=== PATIENT | male | born 1980 | race Caucasian/White ===

== ENCOUNTER 2020-02-17 00:24 | Emergency (ER) | payer BC ==
[2020-02-17] MEDS ORDERED: NA CHLORIDE 0.9% 1,000 ML ONE (00:55)
[2020-02-17] MEDS ORDERED: ONDANSETRON 4 MG/2 ML VIAL ONE (00:55)
[2020-02-17] MEDS ORDERED: MORPHINE 4 MG/ML SYR ONE (00:55)
[2020-02-17] MEDS ORDERED: FAMOTIDINE 20 MG/2 ML VIAL IV ONE (00:56)
[2020-02-17 01:33] LABS: Basophils % 0.6 % (0-1.3)
[2020-02-17 01:36] LABS: Protime INR 0.97
[2020-02-17 01:39] LABS: Absolute Lymphocytes (CBC) 1.7 K/uL (0.7-4.9); Hematocrit 42.3 % (39.6-49.0); Lymphocytes % 13.7 % (15.3-44.8); RBC Red Blood Cell Count 4.76 M/uL (4.33-5.43)
[2020-02-17 03:00] LABS: ALT/SGPT 34 U/L (12-78); AST/SGOT 21 U/L (15-37); Albumin 3.5 g/dL (3.4-5.0); Alkaline Phosphatase 81 U/L (45-117); BUN Blood Urea Nitrogen 12 mg/dL (7-18); Bicarbonate 24 mmol/L (21-32); Bilirubin Direct < 0.1 mg/dL (0-0.2); Bilirubin Total 0.2 mg/dL (0.2-1.0); Glucose Level 138 mg/dL (74-106); Lipase 154 U/L (73-393); Magnesium 1.7 mg/dL (1.8-2.4); NT PRO-BNP 27 pg/mL (<125); Protein, Total 6.6 g/dL (6.4-8.2); Sodium Level 139 mmol/L (136-145); Troponin (Emerg Dept Use Only) < 0.02 ng/mL (0.0-0.045)
[2020-02-17] MEDS ORDERED: MAGNESIUM SULFATE 1 gm IVPB 1 GM/100 ML BAG IV ONE (03:27)
--- NOTE | 2020-02-17 03:56 | EDPHYS ---
Physician Documentation [facility] Name: Michael Horne II Age: 39 yrs Sex: Male : 1980 Arrival Date: 02/17/2020 Time: 00:29 Bed 5 Private MD: AAMIR Physician Narciso Leahy HPI: 02/16 01:14 This 39 yrs old Male presents to ER via Wheelchair with complaints of SEVERE gloria ABDOMINAL PAINS UPPER LFT. 01:14 The patient presents with abdominal pain in the upper abdomen, in the left upper gloria quadrant, in the left lower quadrant, abdominal distention in the upper abdomen, in the lower abdomen. Onset: The symptoms/episode began/occurred 3 day(s) ago. The patient presents to the emergency department with nausea, abdominal pain, of the epigastric area, left upper quadrant and left lower quadrant. Onset: The symptoms/episode began/occurred 3 day(s) ago. Possible causes: unknown. Associated signs and symptoms: The patient has no apparent associated signs or symptoms. The symptoms do not radiate. Historical: - Allergies: 00:44 PENICILLINS; tl1 - Home Meds: 00:44 None [Active]; tl1 - PMHx: 00:44 None; tl1 - PSHx: 00:44 Tonsillectomy; Vasectomy; Adenoids; tl1 - Immunization history:: Adult Immunizations up to date. - Social history:: Smoking status: Patient reports use of chewing tobacco. - Family history:: not pertinent. ROS: 01:14 Constitutional: Negative for fever, chills, and weight loss, Eyes: Negative for injury, gloria pain, redness, and discharge, ENT: Negative for injury, pain, and discharge, Neck: Negative for injury, pain, and swelling, Cardiovascular: Negative for chest pain, palpitations, and edema, Respiratory: Negative for shortness of breath, cough, wheezing, and pleuritic chest pain, Back: Negative for injury and pain, : Negative for injury, bleeding, discharge, and swelling, MS/Extremity: Negative for injury and deformity, Skin: Negative for injury, rash, and discoloration, Neuro: Negative for headache, weakness, numbness, tingling, and seizure, Psych: Negative for depression, anxiety, suicide ideation, homicidal ideation, and hallucinations, Allergy/Immunology: Negative for hives, rash, and allergies, Endocrine: Negative for neck swelling, polydipsia, polyuria, polyphagia, and marked weight changes, Hematologic/Lymphatic: Negative for swollen nodes, abnormal bleeding, and unusual bruising. 01:14 Abdomen/GI: Positive for abdominal pain, nausea and vomiting, abdominal cramps, abdominal distension, of the epigastric area, left upper quadrant and left lower quadrant. 01:14 Abdomen/GI: Positive for Exam: 01:14 Constitutional: This is a well developed, well nourished patient who is awake, alert, gloria and in no acute distress. Head/Face: Normocephalic, atraumatic. Eyes: Pupils equal round and reactive to light, extra-ocular motions intact. Lids and lashes normal. Conjunctiva and sclera are non-icteric and not injected. Cornea within normal limits. Periorbital areas with no swelling, redness, or edema. ENT: Nares patent. No nasal discharge, no septal abnormalities noted. Tympanic membranes are normal and external auditory canals are clear. Oropharynx with no redness, swelling, or masses, exudates, or evidence of obstruction, uvula midline. Mucous membranes moist. Neck: Trachea midline, no thyromegaly or masses palpated, and no cervical lymphadenopathy. Supple, full range of motion without nuchal rigidity, or vertebral point tenderness. No Meningismus. Chest/axilla: Normal chest wall appearance and motion. Nontender with no deformity. No lesions are appreciated. Cardiovascular: Regular rate and rhythm with a normal S1 and S2. No gallops, murmurs, or rubs. Normal PMI, no JVD. No pulse deficits. Respiratory: Lungs have equal breath sounds bilaterally, clear to auscultation and percussion. No rales, rhonchi or wheezes noted. No increased work of breathing, no retractions or nasal flaring. Back: No spinal tenderness. No costovertebral tenderness. Full range of motion. Male : Normal genitalia with no discharge or lesions. Skin: Warm, dry with normal turgor. Normal color with no rashes, no lesions, and no evidence of cellulitis. MS/ Extremity: Pulses equal, no cyanosis. Neurovascular intact. Full, normal range of motion. Neuro: Awake and alert, GCS 15, oriented to person, place, time, and situation. Cranial nerves II-XII grossly intact. Motor strength 5/5 in all extremities. Sensory grossly intact. Cerebellar exam normal. Normal gait. Psych: Awake, alert, with orientation to person, place and time. Behavior, mood, and affect are within normal limits. 01:14 Abdomen/GI: Inspection: distension, Bowel sounds: normal, Palpation: mild abdominal tenderness, in the epigastric area, anterior aspect of left lateral abdomen, left upper quadrant and left lower quadrant, Liver: no appreciated palpable abnormalities, Hernia: not appreciated. 01:18 ECG was reviewed by the Attending Physician. [facility] Vital Signs: 00:40 BP 146 / 103; Pulse 88; Resp 17; Temp 97.8; Pulse Ox 98% ; Weight 99.79 kg; Height 5 tl1 ft. 10 in. (177.80 cm); Pain 9/10; 02:34 BP 146 / 103; Pulse 80; Resp 18; Pulse Ox 100% on R/A; mg2 03:39 BP 142 / 101; Pulse 73; Resp 18; Pulse Ox 100% on R/A; Pain 0/10; mg2 04:37 BP 140 / 93; Pulse 70; Resp 18; Temp 98; Pulse Ox 100% on R/A; mg2 00:40 Body Mass Index 31.57 (99.79 kg, 177.80 cm) tl1 MDM: 00:[address] [facility] 01:16 Data reviewed: vital signs, nurses notes, lab test result(s), EKG, radiologic studies, gloria CT scan, plain films. 01:16 Differential diagnosis: Nonspecific abd pain, pancreatitis, diverticulitis, gloria gastroenteritis, bowel obstruction, cholecystitis, Cholelithiasis, diverticulitis, gastritis, gastroesophageal reflux disease, Mesenteric ischemia or infarction, non-specific abd pain, pancreatitis, Peptic Ulcer Disease, urinary tract infection. Data interpreted: cardiac monitor: rate is 88 beats/min, Pulse oximetry: on room air is 98 %. Test interpretation: by ED physician or midlevel provider: ECG, plain radiologic studies. Counseling: I had a detailed discussion with the patient and/or guardian regarding: the historical points, exam findings, and any diagnostic results supporting the discharge/admit diagnosis, lab results, radiology results. Medication response: Zofran markedly relieved the patient's nausea. 03:47 Response to treatment: the patient's symptoms have markedly improved after treatment. gloria Awaiting: CT scan results. 03:52 ED course: pain has improved, explained all results and ct scan. pt aware and [facility] follow up pcp and gi md. 02/16 00:46 Order name: Basic Metabolic Panel; Complete Time: 03:18 gloria 02/16 00:46 Order name: CBC with Diff; Complete Time: 03:18 [facility] 02/16 00:46 Order name: LFT's; Complete Time: 03:18 [facility] 02/16 00:46 Order name: Magnesium; Complete Time: 03:18 [facility] 02/16 00:46 Order name: NT PRO-BNP; Complete Time: 03:18 [facility] 02/16 00:46 Order name: PT-INR; Complete Time: 03:18 [facility] 02/16 00:46 Order name: Troponin (emerg Dept Use Only); Complete Time: 03:18 [place] 02/16 00:46 Order name: XRAY Chest (1 view) gloria 02/16 00:46 Order name: Lipase; Complete Time: 03:18 [facility] 02/16 00:46 Order name: CT Abd/Pelvis - PO and IV Contrast [facility] 02/16 00:46 Order name: Basic Metabolic Panel mg2 02/16 00:46 Order name: CBC with Diff mg2 02/16 00:46 Order name: Hepatic Function mg2 02/16 00:46 Order name: Lipase mg2 02/16 00:46 Order name: EKG; Complete Time: 01:15 [facility] 02/16 00:46 Order name: Cardiac monitoring; Complete Time: 00:57 [facility] 02/16 00:46 Order name: EKG - Nurse/Tech; Complete Time: 01:14 [facility] 02/16 00:46 Order name: IV Saline Lock; Complete Time: 00:57 [facility] 02/16 00:46 Order name: Labs collected and sent; Complete Time: 00:57 [facility] 02/16 00:46 Order name: O2 Per Protocol; Complete Time: 00:57 [facility] 02/16 00:46 Order name: O2 Sat Monitoring; Complete Time: 00:57 [facility] EC:18 Rate is 78 beats/min. Rhythm is regular. QRS [place] is Normal. HI interval is normal. QRS gloria interval is normal. QT interval is normal. No Q waves. T waves are Normal. No ST changes noted. Clinical impression: Normal ECG and No evidence of ischemia. Interpreted by me. Reviewed by me. Administered Medications: 00:55 Drug: Pepcid 20 mg Route: IVP; Site: left antecubital; mg2 02:04 Follow up: Response: No adverse reaction mg2 00:55 Drug: morphine 4 mg Route: IVP; Site: left antecubital; mg2 02:04 Follow up: Response: No adverse reaction mg2 00:55 Drug: Zofran (Ondansetron) 4 mg Route: IVP; Site: left antecubital; mg2 02:04 Follow up: Response: No adverse reaction mg2 00:57 Drug: NS 0.9% 1000 ml Route: IV; Rate: 1 bolus; Site: left antecubital; mg2 02:04 Follow up: Response: No adverse reaction; IV Status: Completed infusion; IV Intake: mg2 1000ml 03:37 Drug: Magnesium Sulfate 1 grams Route: IVPB; Infused Over: 1 hrs; Site: left mg2 antecubital; 04:37 Follow up: Response: No adverse reaction; IV Status: Completed infusion mg2 Disposition: 02/17/20 03:55 Discharged to Home. Impression: Abdominal tenderness, Polycystic kidney, unspecified, Functional dyspepsia, Hypomagnesemia. - Condition is Stable. - Discharge Instructions: Abdominal Pain, Adult, Hypomagnesemia, Nausea and Vomiting, Adult, Abdominal Pain, Adult, [id number]. - Prescriptions for Bentyl 20 mg Oral Tablet - take 1 tablet by ORAL route every 6 hours As needed; 20 tablet. Pepcid 20 mg Oral Tablet - take 1 tablet by ORAL route every 12 hours for 10 days; 20 tablet. Zofran 4 mg Oral Tablet - take 1 tablet by ORAL route every 12 hours As needed; 20 tablet. - Medication Reconciliation Form, Thank You Letter, Antibiotic Education, Prescription Opioid Use form. - Follow up: Private Physician; When: 2 - 3 days; Reason: Recheck today's complaints, Continuance of care, Re-evaluation by your physician. Follow up: Faisal Sorto MD; When: 2 - 3 days; Reason: Recheck today's complaints, Re-evaluation by your physician. - Problem is new. - Symptoms have improved. Signatures: Dispatcher [employer] EDNarciso Grimaldo MD MD cha Lasagna, Tonya RN RN tl1 Bereket Rader RN RN mg2 Corrections: (The following items were deleted from the chart) 00:46 00:46 IV Saline Lock ordered. mg2 mg2 00:46 00:46 Labs collected and sent ordered. mg2 mg2 04:38 03:55 02/17/2020 03:55 Discharged to Home. Impression: Abdominal tenderness; Polycystic mg2 kidney, unspecified; Functional dyspepsia; Hypomagnesemia. Condition is Stable. Forms are Medication Reconciliation Form, Thank You Letter, Antibiotic Education, Prescription Opioid Use. Follow up: Private Physician; When: 2 - 3 days; Reason: Recheck today's complaints, Continuance of care, Re-evaluation by your physician. Follow up: Faisal Sorto; When: 2 - 3 days; Reason: Recheck today's complaints, Re-evaluation by your physician. Problem is new. Symptoms have improved. gloria
--- NOTE | 2020-02-17 03:56 | ER ---
Nurse's Notes [facility] Name: Michael Horne II Age: 39 yrs Sex: Male : 1980 Arrival Date: 02/17/2020 Time: 00:29 Bed 5 Private MD: Diagnosis: Abdominal tenderness;Polycystic kidney, unspecified;Functional dyspepsia;Hypomagnesemia Presentation: 02/16 00:40 Chief complaint: Patient states: I have had upper left abdominal pain that started tl1 yesterday and has progressively gotten worse. I feel nauseated but have not vomited. Coronavirus screen: Proceed with normal triage. Ebola Screen: Patient negative for fever greater than or equal to 101.5 degrees Fahrenheit, and additional compatible Ebola Virus Disease symptoms Patient denies exposure to infectious person. Patient denies travel to an Ebola-affected area in the 21 days before illness onset. Initial Sepsis Screen: Does the patient meet any 2 criteria? No. Patient's initial sepsis screen is negative. Does the patient have a suspected source of infection? No. Patient's initial sepsis screen is negative. Risk Assessment: Do you want to hurt yourself or someone else? Patient reports no desire to harm self or others. Onset of symptoms was February 14, 2019. 00:40 Method Of Arrival: Wheelchair tl1 00:40 Acuity: EUGENE 3 tl1 Historical: - Allergies: 00:44 PENICILLINS; tl1 - Home Meds: 00:44 None [Active]; tl1 - PMHx: 00:44 None; tl1 - PSHx: 00:44 Tonsillectomy; Vasectomy; Adenoids; tl1 - Immunization history:: Adult Immunizations up to date. - Social history:: Smoking status: Patient reports use of chewing tobacco. - Family history:: not pertinent. Screenin:58 Abuse screen: Denies threats or abuse. Denies injuries from another. Nutritional mg2 screening: No deficits noted. Tuberculosis screening: No symptoms or risk factors identified. Fall Risk IV access (20 points). Assessment: 00:57 General: Appears in no apparent distress. comfortable, Behavior is calm, cooperative. mg2 Pain: Complains of pain in abdomen Pain does not radiate. Pain currently is 9 out of 10 on a pain scale. Quality of pain is described as aching, Pain began gradually, Is intermittent. Neuro: Level of Consciousness is awake, alert, obeys commands, Oriented to person, place, time, situation. Cardiovascular: Capillary refill < 3 seconds Patient's skin is warm and dry. Respiratory: Airway is patent Respiratory effort is even, unlabored, Respiratory pattern is regular, symmetrical. GI: Reports upper abdominal pain. : No signs and/or symptoms were reported regarding the genitourinary system. EENT: No signs and/or symptoms were reported regarding the EENT system. Derm: Skin is intact, is healthy with good turgor, Skin is pink, warm \T\ dry. normal. Musculoskeletal: Circulation, motion, and sensation intact. Capillary refill < 3 seconds. 01:56 Reassessment: informed about the plan. Concepcion- [phone]. mg2 02:34 Reassessment: Patient appears in no apparent distress at this time. Patient and/or mg2 family updated on plan of care and expected duration. Pain level reassessed. Patient is alert, oriented x 3, equal unlabored respirations, skin warm/dry/pink. 03:17 Reassessment: Patient appears in no apparent distress at this time. patient in CT scan mg2 now. 03:40 Reassessment: Patient appears in no apparent distress at this time. Patient and/or mg2 family updated on plan of care and expected duration. Pain level reassessed. Patient is alert, oriented x 3, equal unlabored respirations, skin warm/dry/pink. Patient denies pain at this time. Patient states feeling better. 04:06 Reassessment: dc papers given to the patient, for dc after completing MgSO4 infusion. mg2 contacted to come and pick him up. Vital Signs: 00:40 BP 146 / 103; Pulse 88; Resp 17; Temp 97.8; Pulse Ox 98% ; Weight 99.79 kg; Height 5 tl1 ft. 10 in. (177.80 cm); Pain 9/10; 02:34 BP 146 / 103; Pulse 80; Resp 18; Pulse Ox 100% on R/A; mg2 03:39 BP 142 / 101; Pulse 73; Resp 18; Pulse Ox 100% on R/A; Pain 0/10; mg2 04:37 BP 140 / 93; Pulse 70; Resp 18; Temp 98; Pulse Ox 100% on R/A; mg2 00:40 Body Mass Index 31.57 (99.79 kg, 177.80 cm) tl1 ED Course: 00:29 Patient arrived in ED. fj1 00:43 Triage completed. tl1 00:43 Narciso Leahy MD is Attending Physician. gloria 00:45 Bereket Rader, ALHAJI is Primary Nurse. mg2 00:45 Arm band placed on right wrist. tl1 00:58 Patient has correct armband on for positive identification. data analytics chief scientist on. Pulse mg2 ox on. NIBP on. Door closed. Warm blanket given. 00:59 No provider procedures requiring assistance completed. Inserted saline lock: 20 gauge mg2 in left antecubital area, using aseptic technique. Blood collected. 01:31 XRAY Chest (1 view) In Process Unspecified. EDMS 02:20 Radiology exam delayed due to lab results not completed at this time. (BUN/Creatinine). kw1 02:34 Lab(s) recollected, by me, sent to lab. mg2 02:50 Radiology exam delayed due to lab results not completed at this time. (BUN/Creatinine). kw1 03:28 CT Abd/Pelvis - PO and IV Contrast In Process Unspecified. EDMS 03:54 Faisal Sorto MD is Referral Physician. gloria 04:37 IV discontinued, intact, bleeding controlled, No redness/swelling at site. Pressure mg2 dressing applied. Administered Medications: 00:55 Drug: Pepcid 20 mg Route: IVP; Site: left antecubital; mg2 02:04 Follow up: Response: No adverse reaction mg2 00:55 Drug: morphine 4 mg Route: IVP; Site: left antecubital; mg2 02:04 Follow up: Response: No adverse reaction mg2 00:55 Drug: Zofran (Ondansetron) 4 mg Route: IVP; Site: left antecubital; mg2 02:04 Follow up: Response: No adverse reaction mg2 00:57 Drug: NS 0.9% 1000 ml Route: IV; Rate: 1 bolus; Site: left antecubital; mg2 02:04 Follow up: Response: No adverse reaction; IV Status: Completed infusion; IV Intake: mg2 1000ml 03:37 Drug: Magnesium Sulfate 1 grams Route: IVPB; Infused Over: 1 hrs; Site: left mg2 antecubital; 04:37 Follow up: Response: No adverse reaction; IV Status: Completed infusion mg2 Intake: 02:04 IV: 1000ml; Total: 1000ml. mg2 Outcome: 03:55 Discharge ordered by . gloria 04:38 Discharged to home ambulatory. mg2 04:38 Condition: stable 04:38 Discharge instructions given to patient, Instructed on discharge instructions, follow up and referral plans. medication usage, Demonstrated understanding of instructions, follow-up care, medications, Prescriptions given X 3. 04:38 Patient left the ED. mg2 Signatures: Dispatcher [employer] EDMS Narciso Leahy MD MD cha Lasagna, Tonya RN RN tl1 Elisa Palmer kw1 Bereket Rader RN RN mg2 Zeyad Renee fj1
[2020-02-17 04:55] VITALS: O2SAT 100
[2020-02-17 04:58] VITALS: BP 140/93; TEMP 98
--- NOTE | 2020-02-17 07:11 | EKG ---
Test Date: 2020-02-17 Test Time: 01:13:28 Benefits Officer: MEASUREMENT RESULTS: Intervals: Rate: 78 CO: 140 QRSD: 80 QT: 380 QTc: 433 [place]: P: 21 CO: 140 QRS: 28 T: 21 INTERPRETIVE STATEMENTS: Normal sinus rhythm Normal ECG No previous ECG available for comparison Electronically Signed On 02-17-20 07:10:39 CDT by Jameson Bee
--- NOTE | 2020-02-17 09:56 | RAD REPORT ---
EXAM DESCRIPTION: Yamileth Single View02/17/2020 1:31 am CLINICAL HISTORY: Abdominal pain COMPARISON: none FINDINGS: The lungs appear clear of acute infiltrate. The heart is normal size Mild elevation left hemidiaphragm
--- NOTE | 2020-02-17 16:29 | RAD REPORT ---
EXAM DESCRIPTION: CT - Abdomen Pelvis W Contrast - 02/17/2020 6:56 am CLINICAL HISTORY: ABD PAIN COMPARISON: None Available. TECHNIQUE: CT of the abdomen and pelvis performed following IV administration of iodinated contrast. FINDINGS: Lung Bases: The visualized lung bases are clear. Bones: Degenerative change of the spine. Abdomen: Liver: The liver has normal size and density. No intrahepatic biliary dilatation. Gallbladder: No calcified gallstones. Spleen, Pancreas, and Adrenal Glands: The spleen, pancreas, and adrenal glands are unremarkable. Kidneys: No hydronephrosis or obstructing calculus. Multiple small benign-appearing simple renal cyst. Vasculature: The aorta and IVC have normal caliber and position. The portal vein is patent. The pro ximal visceral and renal arteries are patent. Stomach: The stomach and duodenum have normal course. Other: No free intraperitoneal air. No free fluid or lymphadenopathy. Pelvis: Bladder: Urinary bladder is unremarkable. Bowel: No dilated loops of large or small bowel. Appendix: Normal appendix. Pelvis: Prostate is not enlarged. Small fat-containing left inguinal hernia. IMPRESSION: 1. No acute inflammatory or obstructive process identified. 2. Multiple small bilateral renal. Correlation for history of or risk factors for polycystic kidney d isease recommended. This exam was performed according to our departmental dose-optimization program, which includes autom ated exposure control, adjustment of the mA and/or kV according to patient size and/or use of iterati ve reconstruction technique. Electronically signed by: Gumaro Richards 02/17/2020 3:46 AM CDT Due to temporary technical issues with the PACS/Fluency reporting system, reports are being signed by the in house radiologist as a courtesy to ensure prompt reporting. The interpreting radiologist is f andrealy responsible for the content of the report.
== END 2020-02-17 04:38 | disposition home or self-care (01) ==
LOC: ER 00:24
DX: K30 Functional dyspepsia (principal); E83.42 Hypomagnesemia; Q61.3 Polycystic kidney, unspecified; F17.220 Nicotine dependence, chewing tobacco, uncomplicated; Z88.0 Allergy status to penicillin
CPT/HCPCS: 96365; 96361; 93005; 85025; 80048; 36415; 83735; 85610; 80076; 84484; 83690; 83880; 74177; 71045; 96375; 99284; Q9967; J3475; J7030; J2405